=== PATIENT | female | born 1990 | race Caucasian/White ===

== ENCOUNTER 2025-07-09 09:28 | Outpatient (AMB) | payer BC, SELFPAY ==
--- NOTE | 2025-07-09 08:14 | MHC.PC.OV ---
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 Required: No Accompanied by: Self / Same As Patient Allergies No Known Allergies (No Known Allergies*) Allergy (Verified 07/09/25 08:14) Tobacco use date assessed: 07/09/25 Dental Screening Dental Screen Date: 07/09/25 Did you have a dental visit in the last 12 months?: No Did you have a dental problem in the last 6 months where you did not have access to dental care?: No Was dental information given to patient?: Patient has dentist HPI HPI Comments History of Present Illness Details 35-year-old female with a history of migraines and obesity presenting to the office today for annual physical exam and to establish care. Prior PCP Dr. Burns, last seen 2023 for physical. Lives with her parents and feels safe there. She also helps to care for her father along with her mother who has early-onset dementia. 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 No alcohol. No history of cigarette smoking. No illicit drugs or marijuana. She is working on More physical activity. Has a treadmill under her desk at work and is also recently purchased a [employer] bike. She has also been working on improving her diet, partially due to her father who is having difficulty with healthy diet. She has been eating whole foods overall, limiting processed foods and sugar. She is cooking most meals at home. Migraines- no neurologist to date. Related to menses. Usually one monthly, however does get less severe headaches about 20 days out of the month despite using topiramate 50 mg nightly. She has tried Imitrex in the past without much effect. She is also using ibuprofen and Tylenol or Excedrin. There is associated photophobia, phonophobia. No aura. Reports headaches typically start in the cheek bones bilaterally and radiate up to the top of the head. Once more severe headaches/migraine statin, she experiencing pulsing and sharp pains in the head. There is associated nausea but no vomiting. No lightheadedness. She does use light blocking glasses. Concerns: Migraines as above Health maintenance: Last eye exam- 2022, was going to [facility]. 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 Interested in skin exam Reviewed past medical, surgical, family, social history ROS: General: No fevers, malaise, unintentional weight loss HEENT: No blurred vision, diplopia. No sore throat, nasal congestion, rhinorrhea, sinus pain, ear pain. No hearing loss Neck - no adenopathy Cardiovascular: No chest pain, palpitations, or leg edema Respiratory: No shortness of breath, wheezing, cough Breast: No pain, palpable lumps, nipple inversion GI: No dysphagia, odynophagia, globus sensation. No abdominal pain, vomiting, diarrhea, constipation, melena, hematochezia : No dysuria, hematuria, increased urinary frequency, decreased urinary output. 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 See HPI Psych: no depression/anxiery. No AH/VH. No SI/HI Skin: No rashes or lesions EXAM: Constitutional - Awake and Alert, No apparent distress Eyes - PERRLA, EOMI. Anicteric Ears - external ears normal, canals clear, TMs intact and pearly lester with good cone of light Nose- septum midline, nares clear, no sinus tenderness Mouth/throat- mucosa moist, tongue and uvula midline, no erythema/edema or tonsillar adenopathy. Neck-trachea midline, thyroid symmetric without palpable nodules, no adenopathy Cardiovascular - S1S2, RRR, No edema Respiratory - Normal lung expansion, Normal respiratory effort, No respiratory distress, CTA bilaterally Gastrointestinal - NT / ND; +BS; No rebound or guarding - No CVA tenderness Extremities - no calf tenderness bilaterally, no swelling Musculoskeletal - Normal inspection, normal ROM Skin - Warm/Dry, no concerning lesions Neurological - Alert & oriented x3, CN II-XII in tact, 5/5 strength BUE and BLE, 2+ patellar reflexes, sensation intact Psychological - Appropriate affect [facility] Medical History (Updated 07/09/25 @ 10:07 by FRITZ Mcguire) Morbid obesity Migraine Surgical History No pertinent past surgical history Family History Mother HTN (hypertension) HLD (hyperlipidemia) Father HTN (hypertension) HLD (hyperlipidemia) Unspecified dementia, moderate, with agitation Paternal Grandfather Myocardial infarct Maternal Grandfather Alcoholism Social History Housing: House Patient Tobacco Use Status: Never used Tobacco e-Cigarette/Vaping Use: Never Used service: No Current occupational status: employed Current occupation: [employer] Questionnaire AUDIT C Alcohol Use Questionnaire (AUDIT-C) 1. How often do you have a drink containing alcohol?: Never 3. How often do you have six or more drinks on one occasion?: Never Total Score: 0 Physical exam (Primary Care) Vital Signs: Last Vital Signs Temp 98.3 F 07/09/25 09:35 Pulse 93 07/09/25 09:35 BP 126/84 07/09/25 09:35 Pulse Ox 97 07/09/25 09:35 Oxygen Delivery Method Room Air 07/09/25 09:35 BMI result Body Mass Index 45.3 Tobacco/Smoking Status: Tobacco use Status Tobacco use date assessed 07/09/25 07/09/25 08:15 Patient Tobacco Use Status Never used Tobacco 07/09/25 09:37 e-Cigarette/Vaping Use Never Used 07/09/25 09:37 Coding Level of Care Code New Pt Prev Care [id number] Diagnoses Encounter for routine history and physical examination Z00.00 Migraine G43.909 Morbid obesity E66.01 Assessment & Plan Assessment & Plan (1) Encounter for routine history and physical examination: Code(s): Z00.00 - Encounter for general adult medical examination without abnormal findings Category: Medical Plan: 35-year-old female presenting for annual physical exam and to establish care. Plan as below. (2) Migraine: Code(s): G43.909 - Migraine, unspecified, not intractable, without status migrainosus Category: Medical Plan: Uncontrolled. She can continue using topiramate but is referred to Neurology for further evaluation and management especially of preventative medication. Given lack of improvement with Imitrex and Excedrin, trial Fioricet. Counseled on dosing and side effects. Mass pat reviewed (3) Morbid obesity: Code(s): E66.01 - Morbid (severe) obesity due to excess calories Category: Medical Plan: Commended on weight loss efforts thus far. Recommend moderate intensity exercise for at least 150 minutes weekly. Continue with dietary improvements with caloric deficit and increase protein, fruits, vegetables limiting refined sugars, simple carbohydrates, highly processed foods. Plan Routine screening labs as ordered below Continue with screening mammograms, Pap smears, colonoscopies Continue with sun protection. Referred for skin exam Annual eye exams-advised to schedule Dental exams-advised to schedule Wear seat belt in car Recommend regular exercise and healthy diet Follow-up in 1 year for annual physical exam Orders: Orders Lipid Panel Today Z00.00 - Encounter for general adult medical examination without abnormal findings Vitamin D 25-OH Total Today Z00.00 - Encounter for general adult medical examination without abnormal findings Basic Metabolic Panel Today Z00.00 - Encounter for general adult medical examination without abnormal findings Complete Blood Count Auto Diff Today Z00.00 - Encounter for general adult medical examination without abnormal findings Hemoglobin A1c Today Z00.00 - Encounter for general adult medical examination without abnormal findings Liver Panel Today Z00.00 - Encounter for general adult medical examination without abnormal findings TSH reflex Free T4 Today Z00.00 - Encounter for general adult medical examination without abnormal findings Referrals Dermatology Referral Z12.83 - Encounter for screening for malignant neoplasm of skin Medications: New ctllmmotos-[id number]-[id number] 50-300-40 mg (Fioricet) 1 cap PO Q8H PRN 14 caps 0RF pain
[2025-07-09 09:35] VITALS: BP 126/84; PULSE 93; TEMP 36.8; O2SAT 97; BMI 45.3
== END 2025-07-09 10:05 | disposition home or self-care (01) ==
LOC: HO.HMCHD 09:29
PROVIDERS: PCP Physician Assistant; Visit Provider Physician Assistant
DX: Z00.00 Encounter for general adult medical examination without abnormal findings (principal); G43.909 Migraine, unspecified, not intractable, without status migrainosus; E66.01 Morbid (severe) obesity due to excess calories